=== PATIENT | female | born 1985 | race Caucasian/White ===

== ENCOUNTER 2021-07-19 12:42 | Emergency (ER) | payer OTHER, SELFPAY ==
[2021-07-19 14:00] VITALS: BP 138/66; PULSE 66; RESP 20; TEMP 36.9; O2SAT 99; BMI 31.5
[2021-07-19 14:33] LABS: Apearance,Urine Clear (Clear); Bilirubin,Urine Negative (Negative); Blood, Urine Trace (Negative); Color,Urine Yellow (Yellow); Glucose,Urine (UA) Negative (Negative); Ketones,Urine Negative (Negative); Protein,Urine Negative (Negative); Specific Gravity, Urine >= 1.030 (1.005-1.030); UTC Leukocyte Esterase,Urine Negative (Negative); UTC Nitrate,Urine Negative (Negative); Urobilinogen,Urine 0.2 EU/dl (0.2)
--- NOTE | 2021-07-19 14:35 | HMH.EDUTC ---
[facility] [place] Disposition Clinical Impression: Left hip pain UTI (urinary tract infection) Qualifiers: Urinary tract infection type: site unspecified Hematuria presence: without hematuria Qualified Code(s): N39.0 - Urinary tract infection, site not specified Disposition: Home, Self-Care Condition on Discharge: Good Instructions: Urinary Tract Infection, DI for Urinary Tract Infection (UTI) Additional Instructions: Drink plenty of fluids. Take tylenol or ibuprofen for pain or fever. Take the medications as directed. Follow up with your regular doctor. GO TO THE ER FOR ANY WORSENING SYMPTOMS Quarantine until you know the results of your covid-19 test. If it is positive, the health department should call you and give you further instructions about your length of Quarantine and other things. Notify your school or workplace of your results and follow their instructions regarding return to work/school. The pyridium will make your urine turn orange, this is an expected side effect. It will stain your clothes if it comes into contact with them. Prescriptions: Ibuprofen [Ibuprofen 600mg Tablet] 600 mg PO Q6HP PRN #30 tab PRN Reason: Mild Pain Transmission Status: Received by [facility] Ciprofloxacin HCl [Cipro 500mg Tab] 500 mg PO BID 7 Days #14 tab Transmission Status: Received by [facility] Phenazopyridine HCl [Pyridium 200mg Tablet] 200 pow PO TID #6 tab Transmission Status: Received by [facility] Referrals: Herb Hamilton [Primary Care Provider] - Forms: Work/School Release Time of Disposition: 14:38 Medical Decision Making - Medical Records Medical records reviewed: No: I reviewed the patient's medical records. - Reese Inquiry Pt receiving controlled substance: No Vital Signs: 07/19/21 14:00 07/19/21 14:49 Temperature 98.5 F 98.5 F Temperature Source Oral Pulse Rate 66 Pulse Rate [Right Brachial] 66 Respiratory Rate 20 20 Blood Pressure 138/66 Blood Pressure [Right Arm] 138/66 Blood Pressure Mean [Right Arm] 90 Blood Pressure Source [Right Arm] Automatic Cuff Blood Pressure Position [Right Arm] Sitting 02 Sat by Pulse Oximetry 99 Oxygen Delivery Method Room Air - Lab Data Lab results reviewed: Yes: I reviewed the patient's lab results. Lab Results 07/19/21 14:31: Urine Color Yellow, Urine Appearance Clear, Urine pH 5.0, Ur Specific [place] >= 1.030, Urine Protein Negative, Urine Glucose (UA) Negative, Urine Ketones Negative, Urine Blood Trace, Urine Nitrate Negative, Urine Bilirubin Negative, Urine Urobilinogen 0.2, Ur Leukocyte Esterase Negative Orders (Tests/Meds): ORDERS Category Date Time Status Urine Culture Stat Micro 07/19/21 14:19 Received [facility] [place] HPI - General Stated complaint: left hip and bladder pain, no accident Time Seen by Provider: 07/19/21 14:38 Mode of Arrival: Ambulatory Source of Information: Patient Limitations: No Limitations Description of Symptoms (Recalled from Triage Doc. by RN): PATIENT C/O INTERMITTEN PAIN IN LOWER BACK, HIPS, AND PELVIC AREA HEENT Symptoms (Recalled from RN notes): No Resp Symptoms (Recalled from RN notes): No Skin Symptoms (Recalled from RN notes): No MS Symptoms (Recalled from RN notes): Yes Functional Status (Recalled from RN notes): WNL - History of Present Illness Provider Complaint: She states that for the past 3 days she has had low back pain, pelvic area pain and left hip pain. She denies any history of hurting her hip or low back. She has also been having urinary frequency and dysuria. She was treated for a UTI around 3 weeks ago and she states that she got better then, but now she feels bad again. - Related Data Previous Rx's Medication Instructions Recorded Ciprofloxacin HCl [Cipro 500mg 500 mg PO BID 7 Days #14 tab 07/19/21 Tab] Ibuprofen [Ibuprofen 600mg 600 mg PO Q6HP PRN #30 tab 07/19/21 Tablet] Phenazopyridine HCl [Pyridium 200 pow
[2021-07-19 14:49] VITALS: BP 138/66; PULSE 66; RESP 20; TEMP 36.9; O2SAT 99
== END 2021-07-19 14:51 | disposition home or self-care (01) ==
PROVIDERS: Emergency Provider Nurse Practitioner Family; PCP Pediatrics
DX: N39.0 Urinary tract infection, site not specified (principal); M25.552 Pain in left hip
CPT/HCPCS: 81003; 87086; 99202; G0463

== ENCOUNTER 2021-08-23 10:01 | Emergency (ER) | payer OTHER, SELFPAY ==
[2021-08-23 10:05] VITALS: BP 139/81; PULSE 60; RESP 18; TEMP 36.8; O2SAT 100; BMI 29.4
--- NOTE | 2021-08-23 10:28 | HMH.EDUTC ---
[facility] [place] Disposition Clinical Impression: Intermittent abdominal pain Disposition: Home, Self-Care Condition on Discharge: Good Instructions: Go With Your Gut: When Abdominal Pain Is Something More... Additional Instructions: Make sure to Follow up with your Family Doctor and/or OBGYN for further testing and evaluation Return if needed Straight to ER if pain returns or worsens, you have fever, chills, nausea or vomiting with abdominal pain etc Call your Family Doctor tomorrow and make appointment Referrals: Herb Hamilton [Primary Care Provider] - As needed Time of Disposition: 20:32 Medical Decision Making - Reese Inquiry Pt receiving controlled substance: No Reese was queried for this patient: No Vital Signs: 08/23/21 10:05 08/23/21 10:50 Temperature 98.2 F 98.2 F Temperature Source Oral Pulse Rate 60 Pulse Rate [Right Brachial] 60 Respiratory Rate 18 18 Blood Pressure 139/81 Blood Pressure [Right Arm] 139/81 Blood Pressure Mean [Right Arm] 100 Blood Pressure Source [Right Arm] Automatic Cuff Blood Pressure Position [Right Arm] Sitting 02 Sat by Pulse Oximetry 100 Oxygen Delivery Method Room Air - Lab Data Lab results reviewed: Yes: I reviewed the patient's lab results. Lab Results 08/23/21 10:24: Urine Color Yellow, Urine Appearance Clear, Urine pH 5.5, Ur Specific [place] 1.005, Urine Protein Negative, Urine Glucose (UA) Negative, Urine Ketones Negative, Urine Blood Trace, Urine Nitrate Negative, Urine Bilirubin Negative, Urine Urobilinogen 0.2, Ur Leukocyte Esterase Negative Medical Decision Narrative: Discussed with patient about transfer to the ED for further evaluation and testing Patient states that she is not having any pain at this time if pain returned she would return and go to the ER for further evaluation [facility] [place] HPI - General Stated complaint: abdominal pain Time Seen by Provider: 08/23/21 10:28 Mode of Arrival: Ambulatory Source of Information: Patient Limitations: No Limitations Description of Symptoms (Recalled from Triage Doc. by RN): PATIENT C/O INTERMITTEN SIDE AND ABDOMINAL PAIN FOR APPROX 2 MONTHS. SHE STATES EACH TIME SHE WAS SEEN FOR THESE SYMPTOMS IT WAS A UTI HEENT Symptoms (Recalled from RN notes): No Resp Symptoms (Recalled from RN notes): No Skin Symptoms (Recalled from RN notes): No MS Symptoms (Recalled from RN notes): No Functional Status (Recalled from RN notes): WNL - History of Present Illness Provider Complaint: Patient states that she has been having intermittent pain in her abdomen that is different areas of her abdomen and sometimes moves around States that she has seen PCP and [facility] and was dx with UTI States that today she was bringing her son in and she wanted to get checked to see what is going on Denies pain at this time - Related Data Previous Rx's Medication Instructions Recorded Ciprofloxacin HCl [Cipro 500mg 500 mg PO BID 7 Days #14 tab 07/19/21 Tab] Ibuprofen [Ibuprofen 600mg 600 mg PO Q6HP PRN #30 tab 07/19/21 Tablet] Phenazopyridine HCl [Pyridium 200 pow PO TID #6 tab 07/19/21 200mg Tablet] Allergies Allergy/AdvReac Type Severity Reaction Status Date / Time No Known Allergies Allergy Verified 07/19/21 14:30 - Worker's Comp Is this a Worker's Comp case?: No [facility] History - Hepatitis A Screen Drug use history?: No High risk sexual behaviors?: No History of sexually transmitted infection?: No Currently employed?: No Childcare worker?: No Do you have indoor plumbing?: Yes Do you have electricity?: Yes Attestation statement:: This patient has been screened for Hepatitis A risk factors. I have reviewed the patient's past medical history: Yes ROS Obtained: Yes All systems reviewed & no additional complaints, Yes Systems reviewed as appropriate & no additional complaints - Constitutional Constitutional: Reports system reviewed and no additional complaints, except as docu, Denies body ache, Denies ch
[2021-08-23 10:50] VITALS: BP 139/81; PULSE 60; RESP 18; TEMP 36.8; O2SAT 100
[2021-08-23 10:50] LABS: Apearance,Urine Clear (Clear); Bilirubin,Urine Negative (Negative); Blood, Urine Trace (Negative); Color,Urine Yellow (Yellow); Glucose,Urine (UA) Negative (Negative); Ketones,Urine Negative (Negative); PH,Urine 5.5 (5.0-8.5); Protein,Urine Negative (Negative); Specific Gravity, Urine 1.005 (1.005-1.030); UTC Leukocyte Esterase,Urine Negative (Negative); UTC Nitrate,Urine Negative (Negative); Urobilinogen,Urine 0.2 EU/dl (0.2)
== END 2021-08-23 10:56 | disposition home or self-care (01) ==
PROVIDERS: Emergency Provider Nurse Practitioner; PCP Pediatrics
DX: R10.30 Lower abdominal pain, unspecified (principal)
CPT/HCPCS: 81003; 99202; G0463

== ENCOUNTER 2022-09-19 12:07 | Emergency (ER) | payer OTHER, SELFPAY ==
[2022-09-19 14:50] VITALS: BP 142/86; PULSE 92; RESP 21; TEMP 37.3; O2SAT 98; BMI 27.7
--- NOTE | 2022-09-19 15:03 | EXP.UTC ---
Discharge Plan Disposition Patient Disposition: Home, Self-Care Condition: Good Prescriptions Prescriptions: New psurybshofnidcp-beccmyqoh-DM [Bromfed DM] 2-30-10 mg/5 mL Syrup 10 ml PO Q4H PRN (Reason: Cough) Qty: 240 0RF oseltamivir [Tamiflu] 75 mg capsule 75 mg PO BID 5 Days Qty: 10 0RF No Action phenazopyridine 200 MG tablet 200 pow PO TID Qty: 6 0RF ciprofloxacin HCl 500 MG tablet 500 mg PO BID 7 Days Qty: 14 0RF ibuprofen 600 MG tablet 600 mg PO Q6HP PRN (Reason: Mild Pain) Qty: 30 0RF Referrals Follow up/Referrals: Herb Hamilton [Primary Care Provider] - See instructions Activity Restrictions/Add. Instructions Additional Instructions/Restrictions: Start Tamiflu today if you are going to take it. Discussed risk and possible benefits. Lots of rest Increase Fluids water, Gatorade, powerade, pedialyte,if infant/toddler/child Alternate Tylenol and / or ibuprofen as discussed for fever, aches, chills Follow up IMMEDIATELY with your family doctor for new or worsening Symptoms OR no noticeable improvement over the next 48-72 hours, 911 for difficulty or breathing You or your child area contagious until no fever, aches, chills for 24 hours with medication for symptoms Help Prevent the spread of influenza: ?Wash your hands often. Use soap and water. Wash your hands after you use the bathroom, change a child's diapers, or sneeze. Wash your hands before you prepare or eat food. Use gel hand cleanser that has 60% alcohol, when soap and water are not available. Do not touch your eyes, nose, or mouth unless you have washed your hands first. Cover your mouth when you sneeze or cough. Cough into a tissue or the bend of your arm. If you use a tissue, throw it away immediately and wash your hands. Clean shared items with a germ-killing basting cleaner. Clean table surfaces, doorknobs, and light switches. Do not share towels, silverware, and dishes with people who are sick. Wash bed sheets, towels, silverware, and dishes with soap and water. Wear a mask over your mouth and nose if you are sick. The face mask may help protect others from becoming infected with the flu. Wear the mask when in common areas of your home or if you seek care with a healthcare provider. Stay away from others if you are sick. Stay at home until 24 hours after your fever and symptoms are gone. Clinical Impressions Clinical Impression: Influenza A Stand Alone Forms Stand Alone Forms: Work/School Release Instructions Patient Instructions: DI for Influenza -- Adult, Influenza Discharge ED Provider: Anjali Leach [facility] [place] General Stated complaint: Cough, Congestion, Drainage, FLYNN Time Seen by Provider: 09/19/22 15:03 History of Present Illness Provider Complaint: Patient states that she has been having sore throat, sinus pain and pressure and cough States that this morning she started feeling achy all over, headache and chills States that this evening she was still feeling bad so she came in to get checked Related Data Previous Rx's Medication Instructions Recorded ciprofloxacin HCl 500 mg tablet 500 mg PO BID 7 days #14 tabs 07/19/21 ibuprofen 600 mg tablet 600 mg PO Q6HP PRN Mild Pain #30 07/19/21 tabs phenazopyridine 200 mg tablet 200 pow PO TID #6 tabs 07/19/21 xlagynlxozejhbf-sefokbvpcmsxzql-CI 10 ml PO Q4H PRN Cough #240 mL 09/19/22 2 mg-30 mg-10 mg/5 mL oral syrup (Bromfed DM) oseltamivir 75 mg capsule (Tamiflu) 75 mg PO BID 5 days #10 caps 09/19/22 Allergies Allergy/AdvReac Type Severity Reaction Status Date / Time No Known Allergies Allergy Verified 07/19/21 14:30 PFSH PFS Surgical History (Updated 09/19/22 @ 15:13 by Sheila Ramos RN) History of appendectomy Social History Smoking Status: Never smoker alcohol intake: never
[2022-09-19 15:13] LABS: UTC Influenza A Antigen Positive (Negative); UTC Strep Screen (Rapid) Negative (Negative)
[2022-09-19 15:14] LABS: UTC Influenza B Antigen Negative (Negative)
[2022-09-19 15:20] VITALS: BP 142/86; PULSE 92; RESP 21; TEMP 37.3; O2SAT 98
== END 2022-09-19 15:32 | disposition home or self-care (01) ==
PROVIDERS: Emergency Provider Nurse Practitioner; PCP Pediatrics
DX: J10.1 Influenza due to other identified influenza virus with other respiratory manifestations (principal); R05.9 Cough, unspecified; R51.9 Headache, unspecified; M79.10 Myalgia, unspecified site; R50.9 Fever, unspecified; R09.81 Nasal congestion; Z79.1 Long term (current) use of non-steroidal anti-inflammatories (NSAID); Z79.899 Other long term (current) drug therapy
CPT/HCPCS: 87804; 87880; 99213; G0463